=== PATIENT | male | born 1985 | race Caucasian/White ===

== ENCOUNTER 2017-10-20 13:06 | Emergency (ER) | payer MEDICAID, OTHER ==
[~2017-10-20] VITALS: Ht 167.6 cm; Wt 90.7 kg
[~2017-10-20 13:06] MED LIST: IBUP-1842 PO
[2017-10-20 13:19] VITALS: BP 147/78
[2017-10-20] MEDS ORDERED: KETOROLAC 60 MG/2 ML VIAL IM ONE (14:05)
[2017-10-20 15:17] LABS: APPEARANCE,URINE CLEAR (CLEAR); BILIRUBIN,URINE NEGATIVE (NEGATIVE); BLOOD, URINE NEGATIVE (NEGATIVE); COLOR,URINE YELLOW (YELLOW); LEUKOCYTE ESTERASE ,URINE NEGATIVE (NEGATIVE); NITRITE, URINE NEGATIVE (NEGATIVE); UGLUCOSE NEGATIVE (NEGATIVE)
[2017-10-20 16:20] VITALS: BP 134/89
== END 2017-10-20 16:20 | disposition home or self-care (01) ==
LOC: MED 13:06
DX: M54.16 Radiculopathy, lumbar region (principal)
CPT/HCPCS: 81003; 96372; 99283; J1885

== ENCOUNTER 2018-09-15 14:17 | Emergency (ER) | payer SELFPAY ==
[~2018-09-15] VITALS: Ht 167.6 cm; Wt 95.3 kg
[2018-09-15 14:30] VITALS: BP 142/66
--- NOTE | 2018-09-15 15:05 | NUR ---
CALLED PT FOR BED WITH NO RESPONSE, WILL ATTEMPT TO CALL AGAIN
--- NOTE | 2018-09-15 16:51 | NUR ---
no answer in er lobby
== END 2018-09-15 15:05 | disposition left against medical advice (07) ==
LOC: MED 14:17
DX: M25.512 Pain in left shoulder (principal); Z53.21 Procedure and treatment not carried out due to patient leaving prior to being seen by health care provider

== ENCOUNTER 2021-12-31 20:53 | Emergency (ER) | payer SELFPAY ==
[~2021-12-31] VITALS: Ht 160 cm; Wt 91.6 kg
[2021-12-31 21:28] VITALS: BP 187/83
--- NOTE | 2021-12-31 21:32 | NUR ---
Pt ambualted to lobby with steady gait.
[2021-12-31 21:50] LABS: BASOPHILS # (AUTO) 0.1 K/uL (0.00-0.22); BASOPHILS % (AUTO) 0.7 % (0.0-2.0); EOSINOPHILS # (AUTO) 0.3 K/uL (0-0.4); EOSINOPHILS % (AUTO) 3.1 % (0.0-4.0); HEMATOCRIT 46.4 % (36-52); HEMOGLOBIN 15.9 g/dL (12.0-18.0); LYMPHOCYTES # (AUTO) 3.1 K/uL (2.0-11.5); LYMPHOCYTES % (AUTO) 29.7 % (20.5-51.1); MEAN CORPUSCULAR HEMOGLOBIN 27 pg (27-31); MEAN CORPUSCULAR HGB CONC 34 g/dL (33-37); MONOCYTES % (AUTO) 9.7 % (1.7-9.3); NEUTROPHILS # (AUTO) 5.8 K/uL (1.8-7.7); NEUTROPHILS % (AUTO) 56.8 % (42.2-75.2); PLATELET COUNT (AUTO) 306 K/uL (140-450); RED CELL DISTRIBUTION WIDTH 13.1 % (11.6-13.7); WHITE BLOOD COUNT (AUTO) 10.3 K/uL (4.8-10.8)
[2021-12-31 22:11] LABS: ALBUMIN 4.4 g/dL (3.4-5.0); CREATININE 1.1 mg/dL (0.6-1.3); TOTAL BILIRUBIN 0.6 mg/dL (0.0-1.0)
--- NOTE | 2022-01-01 02:02 | NUR ---
Pt ambualted to [facility] for ERMD to evaluate.
--- NOTE | 2022-01-01 02:26 | NUR ---
GAGAN at [facility] for medical evaluation.
[2022-01-01] MEDS ORDERED: HYDR-4004 PO (02:41)
[2022-01-01] MEDS: hydroCHLOROthiazide 25 MG TAB PO ONE (02:56)
[2022-01-01 03:28] VITALS: BP 131/91
--- NOTE | 2022-01-01 03:28 | NUR ---
Patient discharged with v/s stable. Written and verbal after care instructions given and explained. Patient alert, oriented and verbalized understanding of instructions. Ambulatory with steady gait. All questions addressed prior to discharge. ID band removed. Patient advised to follow up with PMD. Rx of hydrochlorothiazide given. Patient educated on indication of medication including possible reaction and side effects. Opportunity to ask questions provided and answered.
== END 2022-01-01 03:28 | disposition home or self-care (01) ==
LOC: MED 20:53
DX: R03.0 Elevated blood-pressure reading, without diagnosis of hypertension (principal); R51.9 Headache, unspecified; R07.9 Chest pain, unspecified; Z79.899 Other long term (current) drug therapy
CPT/HCPCS: 36415; 80053; 85025; 99283